=== PATIENT | female | born 1985 | race African-American/Black ===

== ENCOUNTER → 2016-06-03 | Outpatient (CLI) | payer OTHER | END | disposition home or self-care (01) | LOC: C.PAPS 13:45 | PROVIDERS: ATTEND Obstetrics & Gynecology | DX: Z01.419 Encounter for gynecological examination (general) (routine) without abnormal findings (principal) ==

== ENCOUNTER → 2016-06-03 | Outpatient (CLI) | payer OTHER | END | disposition home or self-care (01) | LOC: C.LABSPEC 11:57 | PROVIDERS: ATTEND Obstetrics & Gynecology | DX: N89.8 Other specified noninflammatory disorders of vagina (principal) ==

== ENCOUNTER → 2016-10-11 | Outpatient (CLI) | payer OTHER ==
--- NOTE | 2016-10-11 10:06 | DIAGNOSTIC IMAGING REPORT ---
THYROID ULTRASONOGRAPHY. CLINICAL HISTORY: L65.9 [id number] Thyroid [id number] COMPARISON STUDY: No previous studies for comparison. FINDINGS: The right lobe measured 4.9 x 1.3 x 1.8 cm. The left lobe measured 4.1 x 1.4 x 1.7 cm. Both lobes were normal echotexture. No thyroid nodules were identified. IMPRESSION: Normal thyroid ultrasound. Electronically signed by: Yeyo Delarosa M.D. 10/11/2016 10:05 AM Dictated Date/Time: 10/11/2016 10:04 AM
== END | disposition home or self-care (01) ==
LOC: C.ULTRBC 09:36
PROVIDERS: ATTEND Nurse Practitioner Family
DX: E01.0 Iodine-deficiency related diffuse (endemic) goiter (principal); L65.9 Nonscarring hair loss, unspecified

== ENCOUNTER → 2016-10-22 | Outpatient (CLI) | payer OTHER ==
--- NOTE | 2016-10-22 12:51 | MAMMOGRAPHY REPORT ---
ULTRASOUND OF BOTH BREASTS: 10/22/2016 CLINICAL HISTORY: The patient reports palpable lumps in bilateral breasts that she reports she has h ad for her whole life. She denies any change in the palpable lumps. She denies any other complaint s. COMPARISON: No prior exams were available for comparison. TECHNIQUE: Real-time targeted ultrasound of both breasts was performed. FINDINGS: Real-time, high-resolution ultrasound was performed of the areas of the palpable lumps po inted out by the patient, in the left breast at approximately 1 to 2:00, centered around 3 cm from t he nipple, as well as the right breast from 9 to 11:00, centered around 3 cm from the nipple. Sonog raphically normal tissue is seen in these regions, without evidence of a mass or other suspicious so nographic abnormality. IMPRESSION: ACR BI-RADS CATEGORY 1: NEGATIVE No sonographic abnormality at the site of the palpable bilateral breast lumps. There is no sonograp hic evidence of malignancy. Recommend clinical follow-up. The patient was verbally notified of the results. Mariann Ruff M.D. ah/:10/22/2016 10:47:53 Market Intelligence Consultant: Mariann Ruff MD, [facility] letter sent: Normal 1/2 BI-RADS Code: ACR BI-RADS Category 1: Negative
== END | disposition home or self-care (01) ==
LOC: C.MAMM 10:13
PROVIDERS: ATTEND Nurse Practitioner Family
DX: N63 Unspecified lump in breast (principal)

== ENCOUNTER → 2017-02-09 | Outpatient (CLI) | payer OTHER ==
[2017-02-12 01:08] LABS: CHLAMYDIA TRACH RNA*** NOT DETECTED (NOT DETECTED); GC (NEIS GONORRHOEAE)RNA** NOT DETECTED (NOT DETECTED)
== END | disposition home or self-care (01) ==
LOC: C.LABSPEC 17:41
PROVIDERS: ATTEND Nurse Practitioner Adult Health
DX: N89.8 Other specified noninflammatory disorders of vagina (principal)

== ENCOUNTER 2017-02-13 19:48 | Emergency (ER) | payer OTHER ==
[~2017-02-13] VITALS: Ht 157.5 cm; Wt 70.4 kg
[2017-02-13 20:09] VITALS: TEMP 37.1; Ht 157.5 cm; Wt 70.4 kg
[2017-02-13] MEDS ORDERED: SODIUM CHLORIDE 0.9% 1000ML 1,000 ML IV STA (20:09)
[2017-02-13 20:27] LABS: HEMATOCRIT 40.2 % (37-47); MEAN CORPUSCULAR HEMOGLOBIN 28.1 pg (25-34); MEAN CORPUSCULAR HGB CONC 32.3 g/dl (32-36); MEAN PLATELET VOLUME 9.6 fL (7.4-10.4); PLATELET COUNT 367 K/uL (130-400); RED BLOOD COUNT 4.62 M/uL (4.2-5.4); WHITE BLOOD COUNT 16.77 K/uL (4.8-10.8)
[2017-02-13 20:35] VITALS: O2SAT 91
[2017-02-13 20:41] LABS: PREG INTERNAL NEGATIVE QC NEG CLEAR BACKGROUND; PREG INTERNAL POSITIVE QC POS CONTROL LINE
[2017-02-13 20:43] LABS: CALCIUM 9.1 mg/dl (8.5-10.1); CREATININE 1.6 mg/dl (0.60-1.20); INR 1.2 (0.9-1.1); POTASSIUM 3.4 mmol/L (3.5-5.1); PROTHROMBIN TIME (PATIENT) 12.4 SECONDS (9.0-12.0)
[2017-02-13 20:49] LABS: ACETAMINOPHEN < 2 ug/ml (10-30)
[2017-02-13 20:59] LABS: BASO % 0.3 %; BASO ABS # 0.05 K/uL (0-0.2); COMPLETE YES; EOS % 4.7 %; IG% 0.5 %; LYMPH % 26.8 %; MONO % 9.2 %; NEUT % 58.5 %
--- NOTE | 2017-02-13 21:20 | DIAGNOSTIC IMAGING REPORT ---
CHEST ONE VIEW PORTABLE CLINICAL HISTORY: 31 years-old Female presenting with Overdose. TECHNIQUE: Portable supine AP view of the chest was obtained. COMPARISON: None. FINDINGS: Cardiomediastinal silhouette normal. Lungs and pleural spaces clear. Osseous structures normal. Upper abdomen normal. IMPRESSION: 1. No acute cardiopulmonary disease. Electronically signed by: Joce Bryant M.D. 02/13/2017 9:19 PM Dictated Date/Time: 02/13/2017 9:19 PM
[2017-02-13 22:58] VITALS: BP 134/70; PULSE 74; O2SAT 98
--- NOTE | 2017-02-14 01:33 | EMERGENCY ROOM VISIT NOTE ---
History Report prepared by Kushal: Holly Moe Under the Supervision of: Dr. Julián Corbett D.O. First contact with patient: 20:01 Stated Complaint: OVERDOSE History of Present Illness The patient is a 31 year old female who presents to the Emergency Room with complaints of an episode of a drug overdose occurring [employer]PER[employer]. Per EMS, the patient and her significant other were found unconscious by her family. They called 911. Boyfriend told EMS that they were snorting oxycodone and using heroin. The patient denies using any drugs. She does not have any complaints at this time. EMS states that the patient was very sleepy in the ambulance en route to the ED. The HPI is limited secondary to the patient's agitation. 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 Past Medical & Surgical Medical Problems: (1) No active medical problems Family History No pertinent history stated. Social History Smoking Status: Unknown if Ever Smoked Drug Use: heroin Marital Status: in relationship Current/Historical Medications Unable to Obtain Active Prescriptions or Reported Meds Allergies Coded Allergies: Acetaminophen (Verified Allergy, Severe, ANAPHYLAXIS, 02/13/17) Physical Exam Vital Signs Date Time Temp Pulse Resp B/P (MAP) Pulse Ox O2 Delivery O2 Flow Rate FiO2 02/13/17 22:58 74 20 134/70 98 02/13/17 21:57 111 16 120/71 97 Room Air 02/13/17 20:35 91 Room Air 02/13/17 20:19 131 02/13/17 20:09 37.1 120 28 151/97 97 Room Air Physical Exam GENERAL: alert, laying in bed screaming, thrashing around, falls asleep quickly when not stimulated, being placed in restraints. HEAD: NC/AT EYE EXAM: Pupils are pinpoint, injected conjunctiva. OROPHARYNX: no exudate, no erythema, lips, buccal mucosa, and tongue normal and mucous membranes are moist NECK: supple, no nuchal rigidity, no adenopathy, non-tender LUNGS: Clear to auscultation. Normal chest wall mechanics HEART: Tachycardic, no murmurs, S1 normal and S2 normal ABDOMEN: abdomen soft, non-tender, normo-active bowel sounds, no masses, no rebound or guarding. BACK: Back is symmetrical on inspection and there is no deformity, no midline tenderness, no CVA tenderness. SKIN: no rashes and no bruising UPPER EXTREMITIES: upper extremities are grossly normal. LOWER EXTREMITIES: No pitting edema. NEURO EXAM: Awakens to voice when sleeping, but when stimulated extremely agitated. Oriented to person, place, and time. Cranial nerves intact. No focal deficits of the upper or lower extremities. Unable to perform drift or finger to nose. Medical Decision & Procedures ER Provider Diagnostic Interpretation: Radiology results as stated below per my review and the radiologist's interpretation: CHEST ONE VIEW PORTABLE CLINICAL HISTORY: 31 years-old Female presenting with Overdose. TECHNIQUE: Portable supine AP view of the chest was obtained. COMPARISON: None. FINDINGS: Cardiomediastinal silhouette normal. Lungs and pleural spaces clear. Osseous structures normal. Upper abdomen normal. IMPRESSION: 1. No acute cardiopulmonary disease. Electronically signed by: Joce Bryant M.D. 02/13/2017 9:19 PM Dictated Date/Time: 02/13/2017 9:19 PM Laboratory Results 02/13/17 20:17 Red Blood Count 4.62, Mean Corpuscular Volume 87.0, Mean Corpuscular Hemoglobin 28.1, Mean Corpuscular Hemoglobin Concent 32.3, Mean Platelet Volume 9.6, Neutrophils (%) (Auto) 58.5, Lymphocytes (%) (Auto) 26.8, Monocytes (%) (Auto) 9.2, Eosinophils (%) (Auto) 4.7, Basophils (%) (Auto) 0.3, Neutrophils # (Auto) 9.81, Lymphocytes # (Auto) 4.50, Monocytes # (Auto) 1.54, Eosinophils # (Auto) 0.79, Basophils # (Auto) 0.05 02/13/17 20:17 Test 02/13/17 20:09 02/13/17 20:17 White Blood Count 16.77 K/uL (4.8-10.8) Red Blood Count 4.62 M/uL (4.2-5.4) Hemoglobin 13.0 g/dL (12.0-16.0) Hematocrit 40.2 % (37-47) Mean Corpuscular Volume 87.0 fL (80-100) Mean Corpuscular Hemoglobin 28.1 pg (25-34) Mean Corpuscular Hemoglobin Concent 32.3 g/dl (32-36) Platelet Count 367 K/uL (130-400) Mean Platelet Volume 9.6 fL (7.4-10.4) Neutrophils (%) (Auto) 58.5 % Lymphocytes (%) (Auto) 26.8 % Monocytes (%) (Auto) 9.2 % Eosinophils (%) (Auto) 4.7 % Basophils (%) (Auto) 0.3 % Neutrophils # (Auto) 9.81 K/uL (1.4-6.5) Lymphocytes # (Auto) 4.50 K/uL (1.2-3.4) Monocytes # (Auto) 1.54 K/uL (0.11-0.59) Eosinophils # (Auto) 0.79 K/uL (0-0.5) Basophils # (Auto) 0.05 K/uL (0-0.2) RDW Standard Deviation 45.0 fL (36.4-46.3) RDW Coefficient of Variation 14.0 % (11.5-14.5) Immature Granulocyte % (Auto) 0.5 % Immature Granulocyte # (Auto) 0.08 K/uL (0.00-0.02) Prothrombin Time 12.4 SECONDS (9.0-12.0) Prothromb Time International Ratio 1.2 (0.9-1.1) Activated Partial Thromboplast Time 26.7 SECONDS (21.0-31.0) Partial Thromboplastin Ratio 1.0 Anion Gap 20.0 mmol/L (3-11) Est Creatinine Clear Calc Drug Dose 47.7 ml/min Estimated GFR () 49.9 Estimated GFR (Non- 43.1 BUN/Creatinine Ratio 7.0 (10-20) Calcium Level 9.1 mg/dl (8.5-10.1) Total Bilirubin 0.4 mg/dl (0.2-1) Direct Bilirubin 0.1 mg/dl (0-0.2) Aspartate Amino Transf (AST/SGOT) 15 U/L (15-37) Alanine Aminotransferase (ALT/SGPT) 21 U/L (12-78) Alkaline Phosphatase 66 U/L (45-117) Total Creatine Kinase 122 U/L (26-192) Total Protein 8.0 gm/dl (6.4-8.2) Albumin 4.1 gm/dl (3.4-5.0) Lipase 79 U/L (73-393) Human Chorionic Gonadotropin, Qual NEG (NEG) Salicylates Level < 1.7 mg/dl (2.8-20) Acetaminophen Level < 2 ug/ml (10-30) Ethyl Alcohol mg/dL < 3.0 mg/dl (0-3) Laboratory results per my review. Medications Administered Medications (Trade) Dose Ordered Sig/Yasir Route Start Time Stop Time Status Last Admin Dose Admin Sodium Chloride 1,000 ml @ 999 mls/hr Q1H1M STAT IV 02/13/17 20:09 02/13/17 21:09 DC 02/13/17 20:09 999 MLS/HR ECG Indication: toxicologic Rate (beats per minute): 107 Rhythm: sinus tachycardia Findings: Q waves (flattening in lateral leads), no ectopy, other (normal axis) ED Course ED COURSE: Vital signs were reviewed and showed hypertensive and tachycardic. The patients medical record was reviewed The above diagnostic studies were performed and reviewed. ED treatments and interventions as stated above. 2000: The patient was evaluated in room C6. A complete history and physical examination was performed. 2008: NSS 1000 ml @ 999 mls/hr IV 2127: I reassessed the patient. She is sitting up in bed and ambulating through the room. She continues to deny any drug use today but admits to using drugs yesterday. 2206: The patient is resting in her room. 2248: Upon reevaluation, the patient is doing well. She is requesting to be discharged and does not appear to be intoxicated. She denies SI and HI. I discussed my findings with the patient and she understands and agrees with the treatment plan. Based on the patients age, coexisting illnesses, exam and lab findings the decision to treat as an outpatient was made. The patient remained stable while under my care. The patient appeared well at the time of discharge. Medical Decision Differential diagnosis: Etiologies such as toxicologic, infection, hypoglycemia, electrolyte abnormalities, cardiac sources, intracerebral event, neurologic, as well as others were entertained. Patient is a 31-year-old female brought in by EMS as she was found unresponsive next. Boyfriend admits to using IV heroin and starting narcotics. He admits that they were both using drugs. On my initial evaluation patient was extremely agitated and thrashing around yelling and screaming. She was restrained with the restraints. She was answering questions appropriately. No focal deficit. Labs were obtained. White count was 16,000. BMP shows a CO2 of 17,000. Creatinine was 1.6. Bilirubin wall LFTs and lipase was normal. Beta-hCG was negative. She denies any intentional overdose. Salicylate, acetaminophen and alcohol are negative. Urine was not obtained. On reevaluation patient was talking, and appropriate. Overshoots were removed. She was ambulated without difficulty. She is completely appropriate. She denies all complaints with the exception of mild right upper chest wall pain which is clearly reproducible on exam. EKG was unremarkable. This is not cardiac. I favor this is from being restrained, she does note this is the likely cause. Patient requesting be discharged on multiple medications. I favor the low bicarbonate is secondary to narcotics/hypoventilation as she was found be hypoxic initially. Patient was updated at bedside and discharged to follow-up with PCP or her request. I would have preferred to do extra blood work but she did not want this obtained at this time. Discussed with Pt concerning signs and symptoms to watch out for. Pt was instructed to follow up with their PCP and discussed with the patient their option to return to the ED at anytime for persistent or worsening symptoms. The appropriate anticipatory guidance and out-patient management, including indications for return to the emergency department, were explained at length to the patient and understood. Medication Reconcilliation Current Medication List: was personally reviewed by me Blood Pressure Screening Patient's blood pressure: Elevated blood pressure Blood pressure disposition: Elevated BP felt to be situational Impression Primary Impression: Overdose Additional Impression: Hypokalemia Scribe Attestation The scribe's documentation has been prepared under my direction and personally reviewed by me in its entirety. I confirm that the note above accurately reflects all work, treatment, procedures, and medical decision making performed by me. Departure Information Dispostion Home / Self-Care Prescriptions Unable to Obtain Active Prescriptions or Reported Meds Referrals Armando Carvalho III, CRNP (PCP) Forms HOME CARE DOCUMENTATION FORM, IMPORTANT VISIT INFORMATION, WORK / SCHOOL INSTRUCTIONS Patient Instructions ED Overdose Intentional, [facility] Additional Instructions Please follow up with your primary care doctor with in the next 24 hours. Any worsening of your symptoms, please return to the ED immediately. This includes any fevers greater than 100.4, worsening pain, chest pain, shortness breath, persistent nausea, vomiting, unable to eat or drink, or any other concerning signs or symptoms from your standpoint. Please take Tylenol or Motrin as needed for pain. Problem Qualifiers Primary Impression: Overdose Encounter type: initial encounter Injury intent: accidental or unintentional Qualified Codes: T50.901A - Poisoning by unspecified drugs, medicaments and biological substances, accidental (unintentional), initial encounter
== END 2017-02-13 22:59 | disposition home or self-care (01) ==
LOC: EDBD 19:48 → C.EDC 19:49
DX: T50.901A Poisoning by unspecified drugs, medicaments and biological substances, accidental (unintentional), initial encounter (principal); E87.6 Hypokalemia; F11.20 Opioid dependence, uncomplicated